=== PATIENT | male | born 1970 | race Caucasian/White ===

== ENCOUNTER 2019-07-24 18:16 | Emergency (ER) | payer SELFPAY ==
[~2019-07-24] VITALS: Ht 162.6 cm; Wt 76.2 kg
[2019-07-24 18:27] VITALS: BP 140/89; Ht 162.6 cm; Wt 76.2 kg
== END 2019-07-24 19:52 | disposition home or self-care (01) ==
LOC: ED 18:16
DX: R21 Rash and other nonspecific skin eruption (principal); L29.9 Pruritus, unspecified; R03.0 Elevated blood-pressure reading, without diagnosis of hypertension; L53.9 Erythematous condition, unspecified
CPT/HCPCS: J2930; Q0163